=== PATIENT | female | born 1945 | race Caucasian/White ===

== ENCOUNTER → 2017-03-21 | Outpatient (CLI) | payer OTHER ==
[~2017-03-21] MED LIST: APAP500 PO; ASPIR 8181 MG PO; ASPIRIN325 PO; COLCRYS0.6 MG PO; ELIQUIS5 MG PO; FLECAINIDE ACE100 MG PO; LOPRESSOR50 PO; MULTAQ400 MG PO; OMEPRAZOLE 20 M20 M1 PO; PACERONE 200 M200 M1 PO; PERCOCET PO; PRADAXA150 MG PO; PREDNISONE 10 M10 MG PO; PREDNISONE 20 M20 MG PO; PREDNISONE PO; TAMBOCOR 100 M100 M1 PO; TENORMIN50 MG PO; TOPROL XL25 MG PO
== END ==
LOC: RAD 10:52
DX: M17.11 Unilateral primary osteoarthritis, right knee (principal); M25.461 Effusion, right knee; R60.0 Localized edema

== ENCOUNTER → 2017-04-03 | Outpatient (CLI) | payer OTHER | LOC: RAD 12:09 | DX: R05 Cough (principal) ==

== ENCOUNTER → 2018-02-05 | Outpatient (CLI) | payer OTHER | LOC: RAD 11:49 | DX: I51.7 Cardiomegaly (principal); J90 Pleural effusion, not elsewhere classified; J98.11 Atelectasis ==

== ENCOUNTER → 2018-12-17 | Outpatient (CLI) | payer OTHER | LOC: CAT 12:48 | DX: Z13.6 Encounter for screening for cardiovascular disorders (principal); E78.00 Pure hypercholesterolemia, unspecified; Z82.49 Family history of ischemic heart disease and other diseases of the circulatory system ==

== ENCOUNTER 2019-06-23 05:47 | Inpatient (IN) | payer OTHER ==
[2019-06-07 12:19] LABS: HEMATOCRIT 45.8 % (37.0-47.0); HEMOGLOBIN 15.4 gm/dL (12.0-15.0); MCH 30.9 pg (26.0-34.0); MCHC 33.6 g/dL (28.0-37.0); MCV 91.9 fL (80.0-100.0); RBC 4.98 mil/uL (4.20-5.00); RDW 13.9 % (10.5-14.5); WBC 8.5 thou/uL (4.0-11.0)
[2019-06-07 12:22] LABS: URINE BILIRUBIN NEGATIVE (Negative); URINE BLOOD NEGATIVE (Negative); URINE CLARITY CLEAR; URINE COLOR YELLOW; URINE GLUCOSE-RANDOM* NEGATIVE (Negative); URINE KETONES NEGATIVE (Negative); URINE LEUKOCYTES-REFLEX NEGATIVE (Negative); URINE NITRITE-REFLEX NEGATIVE (Negative); URINE PROTEIN (DIPSTICK) NEGATIVE (Negative); URINE UROBILINOGEN 0.2 E.U./dl (0.2-1.0)
[2019-06-07 12:31] LABS: ALBUMIN 3.4 g/dL (3.4-5.0); CALCIUM 9.2 mg/dL (8.5-10.1); CREATININE 0.9 mg/dL (0.6-1.0); POTASSIUM 4.5 mmol/L (3.5-5.1)
[2019-06-07 12:38] LABS: PROTIME 10.7 Seconds (9.3-11.4)
[~2019-06-23] VITALS: Ht 172.7 cm; Wt 113.4 kg
[~2019-06-23 05:47] MED LIST changes: +APAP650 PO; +VITAMIN D1000 UNI1 PO
[2019-06-23 11:00] VITALS: BP 160/78
[2019-06-23 17:00] VITALS: BP 145/56
[2019-06-23 17:13] VITALS: BP 142/61
[2019-06-23 17:43] VITALS: BP 145/56
[2019-06-23 18:30] VITALS: BP 131/55
[2019-06-23 19:18] VITALS: BP 142/56
--- NOTE | 2019-06-23 20:32 | NUR ---
Rceived pt from post op left knee replacement, surgical dressing dry and intact. Pt has not complained of any pain. VS have neen stable, POC followed. Pt has been lethargic and sleepy but responsive. is at the bedside. Started on clear liquids and this is well tolerated. No signs of distress have been noted.
--- NOTE | 2019-06-24 04:34 | NUR ---
PATIENT ASSESSED AND IS ALERT X 4. SKIN WARM AND DRY. RESP EVEN AND UNLABORED.MADY HOSE ON AND SCD'S IN PLACE. LEFT TOTAL KNEE REPLACEMENT WITH PECO DRESSING INTACT. ICE PACK INTACT TO LEFDT KNEE. IS DONE AND GETS IT UP TO [phone]. LEFT HAND SL FLUSHES WELL. 3LNC . DENIES ANY SOA. UP TO BSC AND VOIDS 150. IV FLUIDS STARTED THIS AM AND INFUSING AT 100 CC/HOUR. WITH ANTIBIOTICS ALSO. REFUSED HER MORPHINE LAST EVENING. TAKEN HYDROCODONE X 2 TIME WITH GOOD RESULT. TAKING FLUIDS WELL. AT BEDSIDE. TOES VICTOR M WELL. CONT PLAN OF CARE. TURNS SELF IN BED. PAIN UNDER CONTROL.
[2019-06-24 06:14] LABS: HEMATOCRIT 42.7 % (37.0-47.0); HEMOGLOBIN 13.9 gm/dL (12.0-15.0); MCH 30.8 pg (26.0-34.0); MCHC 32.7 g/dL (28.0-37.0); MCV 94.3 fL (80.0-100.0); RBC 4.52 mil/uL (4.20-5.00); RDW 13.9 % (10.5-14.5); WBC 16.7 thou/uL (4.0-11.0)
[2019-06-24 07:22] VITALS: BP 113/47
[2019-06-24 08:00] VITALS: BP 117/48
[2019-06-24] MEDS ORDERED: ASPIR 8181 MG PO (09:39)
[2019-06-24] MEDS ORDERED: NEURONTIN 300300 M1 PO (09:39)
[2019-06-24 12:00] VITALS: BP 117/48
--- NOTE | 2019-06-24 14:18 | NUR ---
PT ADMITTED RELATED TO LEFT TOTAL KNEE REPLACEMENT. CM REVIEWED CHART AND SPOKE WITH CARE TEAM. CM MET WITH PT AT BEDSIDE THIS DAY. PT INDICATED SHE LIVES IN A HOUSE WITH HER SPOUSE WITH 2 STEPS TO ENTER AND NO STEPS INSIDE. 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 PT INDICATED NO DME OR HH HX. PT INDICATED SHE HAS A FWW FOR USE UPON DC. PT INDICATED SHE IS SET UP WITH AN IP THERAPY APPOINTMENT AT [facility] TOMORROW. CM TO FOLLOW INDICATED WITH DC PLANNING.
[2019-06-24 14:48] VITALS: BP 117/48
[2019-06-24 15:02] VITALS: BP 117/48
--- NOTE | 2019-06-24 15:39 | NUR ---
assumed pt care this am, osiel dressing dry and intact. Ice packs placed on the site. On 3L of O2 via NC no SOA was noted. PT and OT worked with the pt. Was able to ambulate with a steady gait, Pain medication was given in anticipation of pt work up. Regular diet is well tolerated. POC followed, no signs of distress or verbalizations have been noted. is at the bedside. Pt has been cleared to go home by physical therapy. DC orders received, instructions and prescriptions given. IV removed. PT is now dc.
--- NOTE | 2019-06-28 07:37 | O ---
[facility] [place] [address] OPERATIVE REPORT Name: ROSIE FOUNTAIN Room #: 454-P [facility] IN M.R.#: [id number] Admission: 06/23/19 ������������������ Attend Phys: Jefry Nava MD Discharge: 06/24/19 ������������������ Date of : 49 Report #: [id number] THIS REPORT FOR: //name// CC: Jon Nava DATE OF SERVICE: 06/23/2019 PREOPERATIVE DIAGNOSIS: Left knee osteoarthritis. POSTOPERATIVE DIAGNOSIS: Left knee osteoarthritis. PROCEDURE: Left total knee arthroplasty using Navio robotic assistance. SURGEON: Jefry Nava MD DRY PLASTERER HELPER: Ava Garcia PA-C. INDICATIONS FOR ASSISTANCE: Throughout the case, extensive retraction and manipulation of the knee was required, this was afforded to me by my customer relations assistant. ANESTHESIA: LMA with an adductor canal block. IMPLANTS: Burch and Nephew size 6 narrow Legion cobalt chrome femur, a size 4 tibia, a size 9 highly constrained polyethylene and a size 32 patella. TOURNIQUET TIME: 57 minutes. ESTIMATED BLOOD LOSS: 25 mL. COMPLICATIONS: None. SPECIMENS: None. CONDITION UPON LEAVING THE OPERATING ROOM: Stable. INDICATIONS FOR PROCEDURE: The patient is a 74-year-old female with left knee osteoarthritis who failed conservative measures for this and after discussion with her, she elected for left total knee arthroplasty. DESCRIPTION OF PROCEDURE: Risks, benefits, alternatives, complications were discussed in detail with the patient including, but not limited to risk of anesthesia, risk of damage to nerves, arteries and blood vessels, risk for infection and bleeding, risk for continued knee pain, and need for reoperation. Informed consent was obtained from the patient. Left knee was appropriately marked in the preoperative holding area. Adductor canal block was placed by [address] [address] OPERATIVE REPORT Name: ESSIEROSIE C Room #: 454-P [facility] IN .R.#: [id number] Admission: 06/23/19 ������������������ Attend Phys: Jefry Nava MD Discharge: 06/24/19 ������������������ Date of : 49 Report #: [id number] Anesthesia. She was brought to the operating room and placed in the supine position on operating room table. LMA anesthesia was induced without complication. Tourniquet was placed on the left thigh. Left lower extremity was prepped and draped in normal sterile fashion. Timeout was performed properly identifying the patient and procedure as well as the instrumentation and implants. All in the operating room were in agreement. Left lower extremity was exsanguinated, tourniquet was inflated. Tourniquet time was 57 minutes. A standard midline approach to the knee was made with a 10 blade through the skin. Dissection was taken down sharply to the fascia and deep flaps were developed medially and laterally. A fresh 10 blade was used to make a medial parapatellar arthrotomy and the knee was inspected. There was severe tricompartmental osteoarthritic change. ACL and PCL were removed sharply. Reference pins were placed in the femur and the tibia. The knee was then digitally mapped using the [employer] robotic system. Intraoperative plan was made and we sized a size 6 narrow femur, a size 4 tibia with a 10 spacer. After acceptance of the intraoperative plan, the distal femoral cut was made with a Navio bur. The 4-in-1 cutting block was placed. The anterior, posterior and chamfer cuts were made. Tibial resection guide was pinned in place using the Navio robotic system and tibial resection was made. Flexion and extension gaps were then checked and found to have good balance in flexion and extension. There was some increased lateral laxity in flexion. It was felt we could make up for this with a constrained liner. Tibia was sized, found to be a size 4. A size 4 tibial trial was placed and punched. A size 6 femoral trial was placed and box cut was made. This was then trialed with a size 9 highly constrained polyethylene. Knee was taken through range of motion, found to have a millimeter laxity medially and laterally throughout range of motion both digitally as well as manually. A 9 mm was resected from the posterior surface of the patella and a size 32 patellar trial button was placed. Knee was taken through range of motion, found to be stable, found to have good patellar tracking. After this, trial components were removed. Bony ends were thoroughly irrigated with normal saline. A final size 4 tibia, a size 6 Legion cobalt chrome posterior stabilized femur and a size 32 patella were cemented in place using standard cementation techniques. While the cement cured, a periarticular injection consisting of morphine, ropivacaine, epinephrine and Toradol was placed around the knee joint capsule. After the cement cured, tourniquet was deflated. Hemostasis was obtained with Bovie cautery. A final size 9 highly constrained polyethylene was placed. A gram of vancomycin was placed deep in the joint. The fascia was closed with 0 Vicryl, skin closed with 2-0 Vicryl and 3-0 Monocryl. Dermabond and a SANDEEP dressing was applied. The patient tolerated this procedure well and went to the recovery room under care of Anesthesia postoperatively. ��������������������������������������������� <ELECTRONICALLY SIGNED> ���������������������������������������� By: Jefry Nava MD ��������������������������������������������� 06/28/19 0737 1534 1600 Jefry Nava MD /nt
== END 2019-06-24 16:14 | disposition home or self-care (01) | DRG 470 ==
LOC: PRE 05:47 → TBA 05:53 → 4W 05:53 → PRE 10:32 → 4W 17:06 → ENTRNSPT 06-24 15:40 → EDTRNSPTSTS 06-24 15:42 → 4W 06-24 16:14
PROVIDERS: ADMIT Orthopaedic Surgery
DX: M17.12 Unilateral primary osteoarthritis, left knee (principal); Z87.891 Personal history of nicotine dependence
CPT/HCPCS: 10047; 50010; 50101; 50415; 50954; 51130; 51225; 53000; 53078; 53364; 54118; 56527; 56528; 57095; 57103; 57110; 57127; 57180; 62110; 62900; 64039; 64042; 70005

== ENCOUNTER 2020-01-24 10:52 | Inpatient (IN) | payer OTHER ==
[2020-01-10 13:46] LABS: HEMATOCRIT 45.1 % (37.0-47.0); HEMOGLOBIN 14.9 gm/dL (12.0-15.0); MCH 30.6 pg (26.0-34.0); MCHC 32.9 g/dL (28.0-37.0); MCV 92.9 fL (80.0-100.0); RBC 4.86 mil/uL (4.20-5.00); RDW 13.9 % (10.5-14.5)
[2020-01-10 13:47] LABS: URINE BILIRUBIN NEGATIVE (Negative); URINE BLOOD TRACE (Negative); URINE CLARITY CLEAR; URINE COLOR YELLOW; URINE GLUCOSE-RANDOM* NEGATIVE (Negative); URINE KETONES NEGATIVE (Negative); URINE NITRITE-REFLEX NEGATIVE (Negative); URINE PROTEIN (DIPSTICK) NEGATIVE (Negative); URINE SPECIFIC GRAVITY 1.025 (1.005-1.035); URINE UROBILINOGEN 0.2 E.U./dl (0.2-1.0)
[2020-01-10 13:54] LABS: URINE LEUKOCYTES-REFLEX 1+ (Negative)
[2020-01-10 13:55] LABS: CALCIUM 9.2 mg/dL (8.5-10.1); CREATININE 0.8 mg/dL (0.6-1.0); POTASSIUM 4.4 mmol/L (3.5-5.1); PROTIME 10.7 Seconds (9.3-11.4)
[2020-01-10 14:13] LABS: BACTERIA-REFLEX 1-9 Few /HPF (None Seen); CASTS None Seen /LPF (None Seen); CRYSTALS None Seen /LPF (None Seen); SQUAMOUS 4-10 Moderate /LPF (0-3); URINE RBC 0-2 Rare /HPF (0-2); URINE WBC-REFLEX 6-15 Few /HPF (0-5)
[~2020-01-24] VITALS: Ht 172.7 cm; Wt 122.5 kg
[~2020-01-24 10:52] MED LIST changes: +MELOXICAM15 MG PO; +NEURONTIN 300300 M1 PO
[2020-01-24 13:46] VITALS: BP 145/65
[2020-01-24 19:19] VITALS: BP 124/51
--- NOTE | 2020-01-24 20:38 | NUR ---
ASSUMED CARE OF THE PT AT 1745. PT VITALS ARE STABLE. NO C/O PAIN. PT IS RA. PT IS REG DIET. FALL PRECAUTIONS IN PLACE, BED IN THE LOWEST POSITION AND CALL LIGTH IS WITHIN REACH. REPORT GIVEN TO [facility] NURSE.
--- NOTE | 2020-01-25 04:15 | NUR ---
ASSESSED AT START OF SHIFT A&O4. IV INTACT AND FLUIDS STARTED. ADMISSION DONE AND PT ORIENTED TO THE UNIT. SPOUCE AT BEDSIDE FOR THE NIGHT. PT UP WITH ASSISTX1 TO THE BSC. SANDEEP DRESSING, SCD'S INTACT. FALL PREC INTACT WILL CONT WITH POC TILL EOS.
[2020-01-25 04:23] VITALS: BP 143/59
[2020-01-25 05:17] LABS: HEMATOCRIT 42.1 % (37.0-47.0); HEMOGLOBIN 13.5 gm/dL (12.0-15.0); MCH 30.2 pg (26.0-34.0); MCHC 32.1 g/dL (28.0-37.0); RBC 4.48 mil/uL (4.20-5.00); RDW 13.9 % (10.5-14.5); WBC 14.9 thou/uL (4.0-11.0)
--- NOTE | 2020-01-25 11:11 | NUR ---
PT CARE ASSUMED AT 0700. A&Ox4. MADY HOSES AND SCD'S IN PLACE. SANDEEP DRESSING INTACT WITH NO DRAINAGE. IV PATENT WITH NO REDNESS OR EDEMA. POST OP FLUIDS INFUSING. PT DOES NOT COMPLAIN OF ANY PAIN AND REJECTED PT PRE MEDICATIONING. ON ROOM AIR. PT UP TO THE BATHROOM WITH GAITBELT AND A WALKER. IN THE ROOM. PT WILL WORK WITH PT ONE MORE TIME THIS AFTERNOON AND THEN POSSIBLE DISCHARGE. FALL PROTOCOLL IN PLACE. CALL NATHAN SARABIA. UP IN THE RECLINER. WILL CONTINUE TO MONITOR.
[2020-01-25] MEDS ORDERED: NEURONTIN 300300 M1 PO (12:11)
[2020-01-25] MEDS ORDERED: ASPIR 8181 MG PO (12:11)
[2020-01-25 14:05] VITALS: BP 143/59
--- NOTE | 2020-01-25 14:27 | NUR ---
PT ADMITTED RELATED TO R THR. CM REVIEWED CHART AND SPOKE WITH CARE TEAM. CM MET WITH PT AND SPOUSE AT BEDSIDE THIS DAY. PT IS A&O X4. CM ROLE INTRODUCED. PT INDICATED SHE LIVES IN A HOUSE WITH HER SPOUSE WITH 2 STEPS TO ENTER AND NONE INSIDE. PT INDICATED SHE HAS A FWW FOR USE UPON DC. PT INDICATED SHE HAS AN OP PT APPOINTMENT AT [facility] ON FRIDAY. PT ANTICIPATES RETURNING HOME THIS DAY. CM ABLE TO ASSIST SHOULD ANY OTHER DC NEEDS ARISE.
--- NOTE | 2020-01-26 12:28 | O ---
[facility] [place] [address] OPERATIVE REPORT Name: ORSIE FOUNTAIN Room #: 443-P [facility] IN M.R.#: [id number] Admission: 01/24/20 Attend Phys: Jefry Nava MD Discharge: 01/25/20 Date of : 49 Report #: [id number] THIS REPORT FOR: cc: Jon Noyola MD,Jon Nava,Jefry Alvarez MD ~ CC: Jon Nava DATE OF SERVICE: 01/24/2020 PREOPERATIVE DIAGNOSES: 1. Right hip osteoarthritis. 2. Right knee osteoarthritis. POSTOPERATIVE DIAGNOSES: 1. Right hip osteoarthritis. 2. Right knee osteoarthritis. PROCEDURES: 1. Right total hip arthroplasty. 2. Intraarticular cortisone injection, right knee with 80 mg of Depo-Medrol. SURGEON: Jefry Nava MD. CHRO: Ava Garcia PA-C. INDICATIONS FOR CHRO: Throughout the case, extensive retraction and manipulation of the hip including dislocation and reduction was required. This was afforded to me by my speech pathology assistant. ANESTHESIA: General endotracheal. IMPLANTS: Burch and Nephew size 11 high-offset Synergy press fit stem, a size 52 R3 acetabular cup and a size 36+4 cobalt chrome head. ESTIMATED BLOOD LOSS: 200 mL. COMPLICATIONS: None. SPECIMENS: None. CONDITION UPON LEAVING THE OPERATING ROOM: Stable. INDICATIONS FOR PROCEDURE: The patient is a 74-year-old female with severe right hip osteoarthritis. She also has right knee osteoarthritis. She had [facility] [address] [place] [address] OPERATIVE REPORT Name: ROSIE FOUNTAIN Room #: 443-P [facility] IN M.R.#: [id number] Admission: 01/24/20 Attend Phys: Jefry Nava MD Discharge: 01/25/20 Date of : 49 Report #: [id number] failed conservative measures for this and after discussion with her, she elected for right total hip arthroplasty. While under anesthesia, she was requesting a right knee cortisone injection. DESCRIPTION OF PROCEDURE: Risks, benefits, alternatives, complications were discussed in detail with the patient including but not limited to risk of anesthesia, risk of damage to nerves, arteries, blood vessels, risk for infection, bleeding, risk for continued hip pain, leg length discrepancy, instability and need for reoperation. Informed consent was obtained from the patient. The right hip was appropriately marked in the preoperative holding area. IV Ancef was given for preoperative antibiotics. She was brought to the operating room and placed in supine position on operating room table. General anesthesia was induced without complication. She was then placed in the left lateral decubitus position with the right hip uppermost. Timeout was performed, properly identifying the patient and procedure as well as the instrumentation and implants. All in the operating room were in agreement. The right knee was prepped and injected with 80 mg of Depo-Medrol from a superolateral injection site. Right hip and lower extremity were then prepped and draped in normal sterile fashion. A standard posterior approach to the hip was made with 10 blade through the skin. Dissection was taken down to fascia with Bovie cautery and fascia was cleaned with a Milian elevator. Fresh 10 blade was used to make a fascial incision. This was taken proximally and distally with curved Sharma scissor. Charnley retractor was placed. Trochanteric bursa was taken down with Bovie cautery. Piriformis tendon was identified, tagged and taken down with Bovie cautery. Short external rotators were also taken down with Bovie cautery. Capsulotomy was made and capsule ends were tagged for later repair. Hip was dislocated. There was extensive osteoarthritic change to the femoral head. Femoral neck cut was made, 1 cm proximal to lesser trochanter based on preoperative templating and the femoral head was removed. Deep acetabular retractors were placed. Labrum was removed sharply. Pulvinar was removed with Bovie cautery. Acetabulum was then sequentially reamed up to a size 52, at which point, there was excellent bleeding cancellous bone. A size 51 trial cup was placed, found to have a good fit. Final size 52 R3 acetabular cup was then placed and seated. One acetabular screw was placed for backup fixation and a polyethylene liner for 36 head was placed. Attention was then turned to the femur. This was reamed and broached up to a size 11, at which point, the size 11 broach was stable, it was trialed with a high offset neck and a 36+0 head. Hip was reduced, taken through range of motion, found to be stable, found to have somewhat short leg length on the right compared to left. It was felt we could make up for this with a final implant. Hip was dislocated and broach was removed. Final size 11 Synergy press-fit stem was placed and seated. This was then trialed with a 36+4 head. Hip was reduced, taken through range of motion, found to be stable, found to have equal leg lengths. Hip was dislocated one last time. A trial head was removed. A final size 36+4 cobalt chrome head was placed. Hip was reduced, taken through range of motion, found to be stable, found to have equal leg lengths. The hip was thoroughly irrigated with normal [address] [address] OPERATIVE REPORT Name: ROSIE FOUNTAIN Room #: 443-P [facility] IN M.R.#: [id number] Admission: 01/24/20 Attend Phys: Jefry Nava MD Discharge: 01/25/20 Date of : 49 Report #: [id number] saline. A periarticular injection consisting of morphine, ropivacaine, epinephrine and Toradol was placed around the hip joint capsule. A gram of vancomycin was placed deep in the joint, the capsule and piriformis were repaired with 0 FiberWire. Fascia was closed with 0 Vicryl, skin was closed with 2-0 Vicryl, skin staple and a SANDEEP dressing was applied. The patient tolerated this procedure well and went to recovery room under care of anesthesia postoperatively. <ELECTRONICALLY SIGNED> By: Jefry Nava MD 01/26/20 1228 1628 1719 Jefry Nava MD /nt
== END 2020-01-25 14:42 | disposition home or self-care (01) | DRG 470 ==
LOC: PRE 10:52 → TBA 12:26 → 4S 12:26 → TBA 12:33 → PRE 13:31 → 4S 17:25 → TBA 23:03 → ENTRNSPT 01-25 14:32 → 4S 01-25 14:42
PROVIDERS: ADMIT Orthopaedic Surgery
PROC: 0SR902A Replacement of Right Hip Joint with Metal on Polyethylene Synthetic Substitute, Uncemented, Open Approach (ICD-10-PCS; principal; 2020-01-24)
PROC: 3E0U33Z Introduction of Anti-inflammatory into Joints, Percutaneous Approach (ICD-10-PCS; principal; 2020-01-24)
DX: M16.11 Unilateral primary osteoarthritis, right hip (principal); M17.11 Unilateral primary osteoarthritis, right knee; Z96.652 Presence of left artificial knee joint; M54.9 Dorsalgia, unspecified; Z79.82 Long term (current) use of aspirin; Z79.899 Other long term (current) drug therapy; Z87.891 Personal history of nicotine dependence
CPT/HCPCS: 10102; 50010; 50101; 50382; 50414; 51412; 51771; 53000; 53078; 53367; 56524; 56528; 56530; 57095; 57103; 62110; 62900; 70005

== ENCOUNTER → 2020-02-02 | Outpatient (CLI) | payer OTHER | LOC: SJCVC 10:29 | DX: I21.29 ST elevation (STEMI) myocardial infarction involving other sites (principal); R94.31 Abnormal electrocardiogram [ECG] [EKG]; I10 Essential (primary) hypertension; I48.0 Paroxysmal atrial fibrillation; I07.1 Rheumatic tricuspid insufficiency; I34.0 Nonrheumatic mitral (valve) insufficiency; E78.00 Pure hypercholesterolemia, unspecified; Z79.899 Other long term (current) drug therapy ==

== ENCOUNTER → 2020-03-01 | Outpatient (CLI) | payer OTHER | LOC: SJCVCIMAG 10:41 | DX: Z01.810 Encounter for preprocedural cardiovascular examination (principal); I49.3 Ventricular premature depolarization; I48.91 Unspecified atrial fibrillation; I10 Essential (primary) hypertension; E78.5 Hyperlipidemia, unspecified; E66.9 Obesity, unspecified; Z87.891 Personal history of nicotine dependence ==

== ENCOUNTER → 2020-10-19 | Outpatient (CLI) | payer OTHER | LOC: SJCVC 09:00 → SJCVCIMAG 09:00 | PROVIDERS: ATTEND Internal Medicine Cardiovascular Disease | DX: R94.31 Abnormal electrocardiogram [ECG] [EKG] (principal); I10 Essential (primary) hypertension; N28.89 Other specified disorders of kidney and ureter; I25.10 Atherosclerotic heart disease of native coronary artery without angina pectoris; E78.00 Pure hypercholesterolemia, unspecified; I48.0 Paroxysmal atrial fibrillation; I08.1 Rheumatic disorders of both mitral and tricuspid valves; I70.1 Atherosclerosis of renal artery; Z98.890 Other specified postprocedural states; Z79.899 Other long term (current) drug therapy; Z87.891 Personal history of nicotine dependence; Z86.79 Personal history of other diseases of the circulatory system ==

== ENCOUNTER → 2020-11-13 | Outpatient (CLI) | payer OTHER ==
[2020-11-13 10:27] LABS: CALCIUM 9.4 mg/dL (8.5-10.1); CREATININE 0.9 mg/dL (0.6-1.0); POTASSIUM 4.7 mmol/L (3.5-5.1)
== END ==
LOC: LAB 09:35
PROVIDERS: ATTEND Internal Medicine Cardiovascular Disease
DX: Z01.812 Encounter for preprocedural laboratory examination (principal); K57.30 Diverticulosis of large intestine without perforation or abscess without bleeding; N28.89 Other specified disorders of kidney and ureter; K76.89 Other specified diseases of liver; M43.26 Fusion of spine, lumbar region; N28.1 Cyst of kidney, acquired; Z96.641 Presence of right artificial hip joint

== ENCOUNTER → 2021-05-21 | Outpatient (CLI) | payer OTHER | LOC: SJCVCIMAG 08:00 | PROVIDERS: ATTEND Internal Medicine Cardiovascular Disease | DX: R94.31 Abnormal electrocardiogram [ECG] [EKG] (principal); I08.1 Rheumatic disorders of both mitral and tricuspid valves; I11.9 Hypertensive heart disease without heart failure; I25.10 Atherosclerotic heart disease of native coronary artery without angina pectoris; E78.00 Pure hypercholesterolemia, unspecified; I87.2 Venous insufficiency (chronic) (peripheral); I48.0 Paroxysmal atrial fibrillation; I70.1 Atherosclerosis of renal artery; G47.33 Obstructive sleep apnea (adult) (pediatric); E78.5 Hyperlipidemia, unspecified; Z98.890 Other specified postprocedural states; Z86.79 Personal history of other diseases of the circulatory system; Z79.899 Other long term (current) drug therapy; Z87.891 Personal history of nicotine dependence; Z72.89 Other problems related to lifestyle ==

== ENCOUNTER → 2021-12-26 | Outpatient (CLI) | payer OTHER | LOC: SJCVC 09:00 | PROVIDERS: ATTEND Internal Medicine Cardiovascular Disease | DX: R94.31 Abnormal electrocardiogram [ECG] [EKG] (principal); I48.0 Paroxysmal atrial fibrillation; I87.2 Venous insufficiency (chronic) (peripheral); I38 Endocarditis, valve unspecified; I10 Essential (primary) hypertension; I70.1 Atherosclerosis of renal artery; I77.4 Celiac artery compression syndrome; E78.00 Pure hypercholesterolemia, unspecified; E78.5 Hyperlipidemia, unspecified; G47.33 Obstructive sleep apnea (adult) (pediatric); J90 Pleural effusion, not elsewhere classified; Z86.79 Personal history of other diseases of the circulatory system; Z98.890 Other specified postprocedural states; Z87.891 Personal history of nicotine dependence; Z72.89 Other problems related to lifestyle; Z79.899 Other long term (current) drug therapy ==

== ENCOUNTER → 2022-01-10 | Outpatient (CLI) | payer OTHER | LOC: SJCVCIMAG 07:58 | PROVIDERS: ATTEND Internal Medicine Cardiovascular Disease | DX: I70.1 Atherosclerosis of renal artery (principal); K55.1 Chronic vascular disorders of intestine; I10 Essential (primary) hypertension ==